=== PATIENT | male | born 1975 | race Caucasian/White ===

== ENCOUNTER 2022-10-23 18:32 | Emergency (ER) | payer SELFPAY ==
[~2022-10-23] VITALS: Ht 172.7 cm; Wt 65.8 kg
[2022-10-23 18:49] LABS: BASOPHILS % 0.5 % (0.0-1.0); EOSINOPHILS # (AUTO) 0.4 (0.0-0.4); EOSINOPHILS % 4.6 % (0.0-6.0); HEMATOCRIT 43.2 % (38.2-49.6); HEMOGLOBIN 14.8 g/dL (14.0-18.0); LYMPHOCYTES # (AUTO) 2.1 (1.0-3.2); LYMPHOCYTES % 25.3 % (18.0-39.1); MEAN CORPUSCULAR HGB CONC 34.3 g/dL (31-35); MEAN CORPUSCULAR VOLUME 90.6 fL (81-99); MONOCYTES # (AUTO) 0.7 (0.2-0.8); MONOCYTES % 8.4 % (4.4-11.3); PLATELET COUNT 302 x10e3/uL (140-360); RED BLOOD COUNT 4.77 x10e6/uL (4.3-5.7); RED CELL DISTRIBUTION WIDTH 11.8 % (11.7-14.4)
[2022-10-23 19:09] LABS: ALBUMIN/GLOBULIN RATIO 1.3 (0.8-2.0); ANION GAP 12.9 mmol/L (8-16); CALCIUM 8.9 mg/dL (8.4-10.2); POTASSIUM 3.9 mmol/L (3.5-5.1)
[2022-10-23 19:15] LABS: CREATINE KINASE MB 0.6 ng/mL (0-5.0)
[2022-10-23 19:50] LABS: CLARITY,URINE CLEAR (CLEAR); COLOR,URINE YELLOW (YELLOW); KETONES,URINE 1+ (NEGATIVE); LEUKOCYTE ESTERASE ,URINE NEGATIVE (NEGATIVE); NITRITE,URINE NEGATIVE (NEGATIVE); PROTEIN,URINE DIPSTICK NEGATIVE (NEGATIVE)
[2022-10-23 19:53] LABS: EPITHELIAL CELLS,URINE FEW /LPF; MUCUS,URINE MODERATE (RARE); RBC,URINE 0-5 /HPF (0-5)
[2022-10-23 19:56] LABS: AMPHETAMINES SCREEN,URINE NEGATIVE (NEGATIVE); BENZODIAZEPINES SCREEN,URINE NEGATIVE (NEGATIVE); PHENCYCLIDINE SCREEN,URINE NEGATIVE (NEGATIVE)
[2022-10-23 21:04] VITALS: BP 124/91; O2SAT 100
== END 2022-10-23 21:03 | disposition home or self-care (01) ==
LOC: ER 18:41
DX: R07.89 Other chest pain (principal); F14.90 Cocaine use, unspecified, uncomplicated
CPT/HCPCS: 36415; 71045; 80053; 80307; 81001; 82550; 82553; 84484; 85025; 93005; 99284